=== PATIENT | female | born 1990 | race Caucasian/White ===

== ENCOUNTER 2017-03-28 17:42 | Emergency (ER) | payer MEDICAID, OTHER ==
[~2017-03-28] VITALS: Ht 157.5 cm; Wt 130.5 kg
[2017-03-28 17:46] VITALS: Ht 157.5 cm; Wt 130.5 kg
[2017-03-28] MEDS ORDERED: IBUPROFEN 600 MG TAB PO ONE (19:00)
[2017-03-28 19:29] LABS: ADD SCAN DIFF NO
[2017-03-28 19:32] LABS: BASOPHILS % 0.4 % (0.0-2.0); EOSINOPHILS # 0.2 10^3/ul (0.0-0.5); EOSINOPHILS % 1.6 % (0.0-7.0); HEMATOCRIT 39.7 % (37.0-47.0); HEMOGLOBIN 12.9 g/dl (12.0-16.0); LYMPHOCYTES # 2.9 10^3/ul (0.8-2.9); LYMPHOCYTES % 26.2 % (15.0-51.0); MEAN CORPUSCULAR HEMOGLOBIN 27.3 pg (29.0-33.0); MEAN CORPUSCULAR HGB CONC 32.5 g/dl (32.0-37.0); MEAN CORPUSCULAR VOLUME 84.1 fl (82.0-101.0); MEAN PLATELET VOLUME 9.2 fl (7.4-10.4); MONOCYTE # 0.7 10^3/ul (0.3-0.9); NEUTROPHIL # 7.3 10^3/ul (1.6-7.5); NEUTROPHILS % 65.4 % (39.0-77.0); PLATELET COUNT 377 10^3/UL (140-415); RED BLOOD COUNT 4.72 10^6/ul (4.20-5.40); RED CELL DISTRIBUTION WIDTH 13.6 % (11.5-14.5); WHITE BLOOD COUNT 11.1 10^3/ul (4.8-10.8)
--- NOTE | 2017-03-28 19:47 | ERD ---
ER Documentation Chief Complaint Date/Time DATE: 03/28/17 TIME: 19:45 Chief Complaint vaginal bleeding x 16 days HPI This is a 26-year-old female that presents to the ER with heavy vaginal bleeding for the last 16 days. Patient's past medical history of irregular periods, which were controlled with control. Patient has been off of control since August. She did not have any problems until this month. Patient is using anywhere from 8-10 tampons a day. Patient also complaining of pelvic cramping. She is additionally complaining of lower back pain and left upper leg pain with some numbness and tingling. Patient denies any back trauma. She denies any urinary bowel incontinence. She denies any saddle like anesthesia. Patient denies any fevers or chills. She denies any vaginal discharge. ROS 12 point review of systems was done, all negative except per HPI. Medications Home Meds Active Scripts Metformin* (Glucophage*) 500 Mg Tab, 500 MG PO QHS, #20 TAB Prov:EUGENE ABREU C 03/28/17 Ibuprofen* (Motrin*) 600 Mg Tab, 600 MG PO Q6, #30 TAB Prov:LOIS,EUGENE C 03/28/17 Medroxyprogesterone Acetate* (Provera*) 2.5 Mg Tablet, 2.5 MG PO DAILY for 5 Days, TAB Prov:LOIS,EUGENE C 03/28/17 Allergies Allergies: Coded Allergies: No Known Allergy (Unverified , 03/28/17) PMhx/Soc History of Surgery: No Anesthesia Reaction: No Hx Neurological Disorder: No Hx Respiratory Disorders: Yes (asthma) Hx Cardiac Disorders: No Hx Psychiatric Problems: No Hx Miscellaneous Medical Probl: Yes (polycystic ovary syndrome) Hx Alcohol Use: Yes (once q other week) Hx Substance Use: No Hx Tobacco Use: No Smoking Status: Former smoker Physical Exam Vitals Vital Signs Date Time Temp Pulse Resp B/P Pulse Ox O2 Delivery O2 Flow Rate FiO2 03/28/17 17:46 98.4 79 18 141/80 99 Physical Exam GENERAL: The patient is well developed and appropriate for usual state of health , in no apparent distress. HEENT: Atraumatic. CHEST: Clear to auscultation bilaterally. There are no rales, wheezes or rhonchi. HEART: Regular rate and rhythm. No murmurs, clicks, rubs or gallops. ABDOMEN: Soft, nontender and nondistended. Good bowel sounds. No rebound or guarding. No gross peritonitis. No gross organomegaly or masses. No Menjivar sign or McBurney point tenderness. BACK: No midline or flank tenderness. Patient is tender to palpation from L2 through L4. No step-offs no crepitus EXTREMITIES: Equal pulses bilaterally. There is no peripheral clubbing, cyanosis or edema. No focal swelling or erythema. Full range of motion. Grossly neurovascularly intact. Patient is not tender to palpation over her left upper leg. Her sensations are intact neurovascularly intact. NEURO: Alert and oriented SKIN: There is no apparent rash or petechia. The skin is warm and dry. Result Diagram: 03/28/17191803/28/171918 Results 24 hrs Laboratory Tests Test 03/28/17 19:11 03/28/17 19:19 Urine Color RED Urine Clarity BLOODY Urine pH 7.0 Urine Specific [place] 1.025 Urine Ketones NEGATIVE Urine Nitrite NEGATIVE Urine Bilirubin NEGATIVE Urine Urobilinogen 0.2 E.U./dL Urine Leukocyte Esterase NEGATIVE Urine Microscopic RBC >50/HPF Urine Microscopic WBC 0-2/HPF Urine Squamous Epithelial Cells MODERATE Urine Bacteria FEW Urine Hemoglobin 3+ Urine Glucose NEGATIVE% Urine Total Protein 1+ White Blood Count 11.110^3/ul Red Blood Count 4.7210^6/ul Hemoglobin 12.9g/dl Hematocrit 39.7% Mean Corpuscular Volume 84.1fl Mean Corpuscular Hemoglobin 27.3pg Mean Corpuscular Hemoglobin Concent 32.5g/dl Red Cell Distribution Width 13.6% Platelet Count 90018^3/UL Mean Platelet Volume 9.2fl Neutrophils % 65.4% Lymphocytes % 26.2% Monocytes % 6.0% Eosinophils % 1.6% Basophils % 0.4% Nucleated Red Blood Cells % 0.0/100WBC Neutrophils # 7.310^3/ul Lymphocytes # 2.910^3/ul Monocytes # 0.710^3/ul Eosinophils # 0.210^3/ul Basophils # 0.010^3/ul Nucleated Red Blood Cells # 0.010^3/ul Sodium Level 142mmol/L Potassium Level 3.8mmol/L Chloride Level 103mmol/L Carbon Dioxide Level 26mmol/L Anion Gap 17 Blood Urea Nitrogen 17mg/dl Creatinine 0.83mg/dl Glucose Level 101mg/dl Calcium Level 9.4mg/dl Total Bilirubin 0.4mg/dl Direct Bilirubin 0.00mg/dl Indirect Bilirubin 0.4mg/dl Aspartate Amino Transf (AST/SGOT) 19IU/L Alanine Aminotransferase (ALT/SGPT) 30IU/L Alkaline Phosphatase 90IU/L Total Protein 8.3g/dl Albumin 4.3g/dl Globulin 4.00g/dl Albumin/Globulin Ratio 1.07 Current Medications Medications (Trade) Dose Ordered Sig/Lara Route PRN Reason Start Time Stop Time Status Last Admin Dose Admin Ibuprofen (Motrin) 600 mg ONCE ONCE PO 03/28/17 19:00 03/28/17 19:02 DC 03/28/17 19:22 Procedures/MDM This is a 26-year-old female presents to the ER for a 3 week long period. This is likely dysfunctional uterine bleeding. There was no evidence of , fibroid, endometriosis. Patient is hemodynamically stable with no evidence of anemia. In regards to patient's back pain and left leg pain this may be secondary to overuse. Patient did not have any trauma she was not tender to palpation over the left femur on physical examination. There is no evidence of fractures or dislocations of the lower back. Patient will be sent home with ibuprofen, Provera, metformin. Patient requested a refill of her metformin as she has PCOS [place], she is unable to see a primary care doctor at this time. Patient needs to follow-up with her primary care doctor within 1 to days return to ER sooner if symptoms worsen. My medical decision making shared with patient she understands and agrees with plan. Departure Diagnosis: Primary Impression: Dysfunctional uterine bleeding Condition: Stable EUGENE ABREU Mar 28, 2017 19:47
[2017-03-28 19:48] LABS: ADD UMIC YES; URINE BILIRUBIN (Dip) NEGATIVE (NEGATIVE); URINE BLOOD (Dip) 3+ (NEGATIVE); URINE GLUCOSE (Dip) NEGATIVE (NEGATIVE); URINE KETONES (Dip) NEGATIVE (NEGATIVE); URINE LEUKOCYTE ESTERASE (Dip) NEGATIVE (NEGATIVE); URINE NITRITE (Dip) NEGATIVE (NEGATIVE); URINE TOTAL PROTEIN (Dip) 1+ (NEGATIVE); URINE UROBILINOGEN (Dip) 0.2 E.U./dL (0.1-1.0)
[2017-03-28 19:48] LABS: ALBUMIN 4.3 g/dl (3.3-4.9)
[2017-03-28 19:49] LABS: POTASSIUM 3.8 mmol/L (3.5-5.1)
[2017-03-28 19:51] LABS: ALBUMIN/GLOBULIN RATIO 1.07; BILIRUBIN,INDIRECT 0.4 mg/dl (0-1.1); BILIRUBIN,TOTAL 0.4 mg/dl (0.2-1.3); CREATININE 0.83 mg/dl (0.44-1.00); TOTAL PROTEIN 8.3 g/dl (6.1-8.1)
[2017-03-28 19:52] LABS: CALCIUM 9.4 mg/dl (8.4-10.2)
[2017-03-28 19:57] LABS: URINE COLOR RED (YELLOW)
[2017-03-28 20:01] LABS: BACTERIA,URINE FEW; SQUAMOUS EPITHELIAL CELL,UR MODERATE; URINE RBCS >50 /HPF (0)
--- NOTE | 2017-03-28 20:07 | RADRPT ---
PROCEDURE: XR Lumbar Spine. CLINICAL INDICATION: Low back pain. TECHNIQUE: Supine AP, cone-down lateral, and lateral views of the lumbar spine were obtained. COMPARISON: None. FINDINGS: Mineralization is within normal limits. Vertebral bodies are normal in height. No fracture is iden tified. Lumbar lordosis is preserved. No vertebral subluxation is seen. The intervertebral discs are normal in height. Paraspinal contours are unremarkable. RPTAT:HJJR IMPRESSION: Unremarkable three view series of the lumbar spine. Physician Faby Date Time Electronically viewed and signed by Physician Faby on 03/28/2017 20:06 /
--- NOTE | 2017-03-28 21:31 | RADRPT ---
PROCEDURE: US Pelvis. CLINICAL INDICATION: Vaginal bleeding TECHNIQUE: Multiple sonographic images of the pelvis were obtained utilizing a transabdominal and endovaginal technique. The images were reviewed on a PACS workstation. COMPARISON: None available FINDINGS: Uterus: Normal in size, contour and echogenicity with no evidence for myometrial masses. Size is est imated at 7.5 x 4.2 x 3 cm. Cervix: Incidental small Nabothian cysts are noted Endometrium: Normal in thickness; 4.1 mm. Right ovary / adnexa: Normal in size estimated at 4.1 x 3 x 2.7 cm. No evidence for masses, normal blood flow on Doppler interrogation. Left ovary/adnexa: Normal in size estimated at 4.3 x 2.7 x 2.6 cm. No evidence for solid masses, no rmal blood flow on Doppler interrogation. Cul-de-sac: No evidence of free fluid. RPTAT:HJJR IMPRESSION: Unremarkable pelvic ultrasound without findings to explain the patient's provided history. Physician Faby Date Time Electronically viewed and signed by Physician Faby on 03/28/2017 21:31 /
[2017-03-28] MEDS ORDERED: MEDR2.5T PO (21:41)
[2017-03-28] MEDS ORDERED: IBUP-1542 PO (21:41)
[2017-03-28] MEDS ORDERED: METF500T4 PO (21:45)
== END 2017-03-28 21:47 | disposition home or self-care (01) ==
LOC: FTE 17:42
DX: N93.8 Other specified abnormal uterine and vaginal bleeding (principal); J45.909 Unspecified asthma, uncomplicated; R10.2 Pelvic and perineal pain; Z87.891 Personal history of nicotine dependence
CPT/HCPCS: 72100; 76830; 76856; 80053; 81001; 85025; Z7610; 81003

== ENCOUNTER 2017-07-10 18:30 | Emergency (ER) | payer SELFPAY ==
[~2017-07-10] VITALS: Wt 135.5 kg
[~2017-07-10 18:30] MED LIST: IBUP-1542 PO; MEDR2.5T PO; METF500T4 PO
[2017-07-10 18:38] VITALS: Wt 135.5 kg
== END 2017-07-10 20:30 | disposition left against medical advice (07) ==
LOC: FTE 18:30
DX: Z53.21 Procedure and treatment not carried out due to patient leaving prior to being seen by health care provider (principal)